=== PATIENT | male | born 1935 | race African-American/Black ===

== ENCOUNTER 2024-01-10 14:32 | Emergency (ER) | payer MEDICARE, MEDICAID ==
[~2024-01-10] VITALS: Ht 172.7 cm; Wt 77.0 kg
[2024-01-10 14:37] VITALS: TEMP 98.3; O2SAT 98
[2024-01-10] MEDS: KETOROLAC 15MG/ML VIAL IV ONE ×2 (15:35→17:52)
[2024-01-10] MEDS: SODIUM CHLORIDE 0.9% 1,000 ML IV ONE (15:35)
[2024-01-10 16:46] LABS: BASOPHILS % 0.6 % (0.0-2.0); EOSINOPHILS % 0.3 % (0.0-5.0); HEMATOCRIT. 43.6 % (42.0-52.0); HEMOGLOBIN. 14.3 g/dL (14.0-18.0); LYMPHOCYTES % 10.5 % (20.0-50.0); MEAN CORPUSCULAR HEMOGLOBIN 29.8 pg (28.0-32.0); MEAN CORPUSCULAR HGB CONC 32.8 g/dL (31.0-37.0); MEAN CORPUSCULAR VOLUME 90.7 fL (80.0-94.0); MONOCYTES % 7.2 % (2.0-8.0); NEUTROPHILS % 81.4 % (40.0-76.0); PLATELET 198 x1000/uL (130-400); RED BLOOD CELL COUNT 4.81 mill/uL (4.7-6.1); RED CELL DISTRIBUTION WIDTH 13.8 % (11.6-14.6); WHITE BLOOD COUNT 5.7 x1000/uL (4.5-11.0)
[2024-01-10 16:55] LABS: CHLORIDE 105 mEq/L (98-107); POTASSIUM 3.4 mEq/L (3.5-5.1); SODIUM 137 mEq/L (136-145)
[2024-01-10 16:57] LABS: CARBON DIOXIDE 24 mEq/L (21-32)
[2024-01-10 16:58] LABS: PARTIAL THROMBOPLASTIN TIME 28.2 sec (23.4-31.0); PROTHROMBIN TIME 11.5 sec (9.6-11.0)
[2024-01-10 17:02] LABS: CREATININE 0.8 mg/dL (0.6-1.3); GLUCOSE 84 mg/dL (70-105); TROPONIN I HIGH SENSITIVITY 4 ng/L (3.0-53)
[2024-01-10 17:04] LABS: ALANINE AMINOTRANSFERASE 10 IU/L (10-49); ALBUMIN 3.8 g/dL (3.2-4.8); ASPARTATE AMINOTRANSFERASE 20 IU/L (<34); BILIRUBIN DIRECT 0.2 mg/dL (<=3.0); BILIRUBIN TOTAL 0.9 mg/dL (0.1-1.0); PROTEIN TOTAL 6.3 g/dL (6.0-8.3)
[2024-01-10 17:13] VITALS: BP 141/82; PULSE 80; RESP 17
[2024-01-10 17:40] LABS: UREA NITROGEN BLOOD 6 mg/dL (9-23)
== END 2024-01-10 19:52 | disposition home or self-care (01) ==
LOC: ER 14:32
DX: R42 Dizziness and giddiness (principal); R51.9 Headache, unspecified; Z88.5 Allergy status to narcotic agent
CPT/HCPCS: 99285; 96374; 70450; 71045; 96361; 80076; 80048; 85025; 85610; 85730; 84484; 36415; 93005; 96376; J1885; J7030